=== PATIENT | female | born 1950 | race Caucasian/White ===

== ENCOUNTER → 2024-09-30 | Outpatient (CLI) | payer MEDICARE, MEDICAID, SELFPAY ==
--- NOTE | 2024-09-30 12:20 | XR_ITS ---
Examination: Bone densitometry Date and time of exam:September 30, 2024 1212 hours INDICATIONS: Hysterectomy age 31, family history, mother, hip fracture secondary to osteoporosis, Dilantin 20 years, personal history osteoporosis Technique: Lumbar spine and hip total bone mineralization values of an calculated. Peak reference and age match control results have been displayed. Findings: Lumbar spine total bone mineralization is0.853 gm/cm2. This is 1.5 standard deviations below peak reference. This is 0.7 standard deviations above age-matched controls. Hip total bone mineralization is 0.573 gm/cm2 This is 3.0 standard deviations below peak reference. This is 1.4 standard deviations below age-matched controls Impression: There is osteopenia based on lumbar spine measurements. There is osteoporosis based on hip measurements Lumbar mineralization is increased 5.2% compared with September 18, 2022 Hip mineralization is decreased 2.0% compared with September 18, 2022
== END | disposition home or self-care (01) ==
PROVIDERS: PCP Family Medicine; Referring Provider Family Medicine; Visit Provider Family Medicine
DX: M85.88 Other specified disorders of bone density and structure, other site (principal); M81.0 Age-related osteoporosis without current pathological fracture
CPT/HCPCS: 77080